=== PATIENT | female | born 1945 | race Caucasian/White ===

== ENCOUNTER 2016-11-22 20:03 | Inpatient (IN) ==
[2016-11-22] MEDS ORDERED: methylPREDNISolone 125 MG/2 ML VIAL IVP ONE (20:35)
[2016-11-22] MEDS ORDERED: Ipratropium/Albuterol Neb 3 ML IH ONE ×2 (20:35→20:37)
--- NOTE | 2016-11-22 20:48 | Emergency Department Note ---
Disposition Clinical Impression: Acute exacerbation of chronic obstructive airways disease Disposition: Admitted As Inpatient Condition: Good Referrals: NO,PCP [Primary Care Provider] - Forms: ED Satisfaction Letter SOB HPI - General Chief Complaint: ED Shortness of Breath/Dyspnea Stated Complaint: "SOB" Time Seen by Provider: 11/22/16 20:27 Source: patient, family Mode of arrival: wheelchair Limitations: no limitations Nursing Notes Reviewed: Yes Vital Signs Reviewed: Yes - History of Present Illness 71-year-old female history of COPD, Swapnil's granulomatosis who presents to the ER with a chief complaint of shortness of breath and cough. Patient reports that she has been sick for the last month in duration. She reports that she follows with a optical glass wet inspector who called her in [facility] a few days ago. She reports a cough without sputum production. No fevers at home. States that she is on 20 mg of prednisone daily. She is compliant with this and has not missed any doses. No sick contacts that she is aware of. She does not wear oxygen at home. No history of DVT, PE or LA. No other complaints. Pt Subjective Complaint: shortness of breath, cough, chest pain Onset (ago): day(s) Context: recent illness Severity: severe Consistency/Duration: constant Improves with: oxygen Worsens with: nothing Known history of: COPD Associated symptoms: Reports: chest pain, cough. Denies: fever, sputum production, lower extremity pain, hemoptysis, nausea/vomiting, abdominal pain Treatment prior to arrival: bronchodilator, other (Zithromax and prednisone) Cough present: Yes Cough Description: Involuntary Cough Frequency: Intermittent Sputum production: No Sputum Amount: None - Related Data Home oxygen amount: none Home Medications Medication Instructions Recorded Confirmed Albuterol Neb [Proventil Neb] 2.5 mg IH Q4H PRN 11/22/16 11/22/16 Albuterol Sulfate [Albuterol 2 puff IH Q4H PRN 11/22/16 11/22/16 Inhaler] Azithromycin [Zithromax] 250 mg PO PER PKG DI 11/22/16 11/22/16 Budesonide/Formoterol 160/4.5 2 puff IH BIDR 11/22/16 11/22/16 [Symbicort 160/4.5] Lisinopril [Zestril] 10 mg PO DAILY 11/22/16 11/22/16 PredniSONE [PredniSONE] 20 mg PO BID 11/22/16 11/22/16 Tiotropium [place] [Spiriva] 18 mcg IH DAILY 11/22/16 11/22/16 Allergies Allergy/AdvReac Type Severity Reaction Status Date / Time Amoxicillin AdvReac Nausea Verified 11/22/16 20:20 All systems ED: reviewed and negative except as stated. Constitutional: Denies: fever Cardiovascular: Reports: chest pain Respiratory: Reports: cough, dyspnea, wheezes. Denies: hemoptysis Gastrointestinal: Denies: abdominal pain, nausea, vomiting, diarrhea Musculoskeletal: Reports: back pain. Denies: neck pain Past Medical History - Past Medical History Attestation: Yes The following information was validated with the patient. Source: patient Medical history: Reports: cancer, COPD, hypertension, other Surgical history: Reports: non-contributory Psychiatric history: Reports: no psych history - Social History Smoking Status: Former smoker Smokeless Tobacco Status: No Alcohol use: Reports: none Drug use: Reports: none Physical Exam - General Limitations: no limitations General appearance: alert, in no apparent distress - Head Head exam: atraumatic, normocephalic, normal inspection - Eye Eye exam: Present: normal appearance, EOMI - ENT ENT exam: normal exam - Neck Neck exam: Present: normal inspection, full ROM - Chest Chest inspection: Present: normal inspection, symmetric chest wall rise - Respiratory Respiratory exam: Present: wheezes (Diffuse end expiratory wheezing.), accessory muscle use, prolonged expiratory phase - Cardiovascular Cardiovascular exam: Present: normal rhythm, tachycardia, normal heart sounds - Abdominal Exam Abdominal exam: Present: soft, Non-Tender. Absent: tenderness - Expanded Upper Extremity Exam Shoulder exam: Present: normal inspection, full ROM Arm exam: Present: normal inspection, full ROM Elbow exam: Present: normal inspection, full ROM Forearm/Wrist exam: Present: normal inspection, full ROM Hand exam: Present: normal inspection, full ROM - Expanded Lower Extremity Exam Hip/Pelvis exam: Present: normal inspection, full ROM Upper leg exam: Present: normal inspection, full ROM Knee exam: Present: normal inspection, full ROM Lower leg exam: Present: normal inspection, full ROM Ankle exam: Present: normal inspection, full ROM Foot/toe exam: Present: normal inspection, full ROM - Neurological Exam Neurological exam: Present: alert - Psychiatric Psychiatric exam: Present: normal affect, normal mood - Skin Skin exam: Present: warm, dry, intact, normal color Course Course Narrative: Patient seen and examined. Vital signs reviewed. Tachycardic here in the 120s. She was 91% on room air at arrival. Doing nebs have been ordered and are in process. We will also give her a dose of IV Solu-Medrol. EKG, chest x- ray and labs including troponin will be ordered. Likely will require admission. - Reevaluation(s) Reevaluation #1: Discussed results of imaging and lab work with the patient. Vital Signs Temperature 99.3 F 11/22/16 20:20 Pulse Rate 126 11/22/16 20:20 Respiratory Rate 24 11/22/16 20:20 Blood Pressure 158/87 11/22/16 20:20 O2 Sat by Pulse Oximetry 93 L 11/22/16 20:20 Temperature 99.3 F 11/22/16 20:20 Pulse Rate 126 11/22/16 20:20 Respiratory Rate 26 11/22/16 20:40 Blood Pressure 158/87 11/22/16 20:20 O2 Sat by Pulse Oximetry 96 11/22/16 20:40 Oxygen Delivery Oxygen Delivery Room Air Shortness of Breath/Dyspnea - MDM Narrative Medical decision making narrative: 71-year-old female presents to the ER due to shortness of breath and cough for 1 month in duration. History of COPD she is not on oxygen at home. 91% on room air here. Patient given DuoNeb treatments and IV steroids. EKG shows sinus tach. Chest x-ray shows no focal consolidation. Admitted to the hospitalist service for COPD exacerbation. - Lab Data Lab results reviewed: Yes I reviewed the patient's lab results. Result diagrams: 11/22/16 20:43 11/22/16 20:43 Lab Results 11/22/16 11/22/16 11/22/16 Range/Units 20:43 20:43 20:43 WBC 16.7 H (4.3-11.1) K/mcL RBC 4.06 (3.82-4.97) M/mcL Hgb 12.7 (11.5-15.4) g/dL Hct 37.1 (35.3-44.9) % MCV 91.4 (83.0-100.0) fL MCH 31.3 (28.0-33.3) pg MCHC 34.2 (31.6-35.5) g/dL RDW 12.9 (11.5-14.5) % Plt Count 299 (140-400) K/mcL MPV 9.9 (9.4-12.4) fL Immature Gran % 0.6 (0-4) % Seg Neutrophils % 85.2 % Lymphocytes % 9.8 % Monocytes % 4.2 % Eosinophils % 0.0 % Basophils % 0.2 % Neutrophils # 14.2 H (1.6-8.9) K/mcL Lymphocytes # 1.6 (0.6-4.6) K/mcL Monocytes # 0.7 (0.0-1.3) K/mcL Eosinophils # 0.0 (0.0-0.6) K/mcL Basophils # 0.0 (0.0-0.2) K/mcL Sodium 125 L (136-145) mEq/L Potassium 4.2 (3.5-4.5) mEq/L Chloride 90 L (98-109) mEq/L Carbon Dioxide 24 (19-29) mEq/L BUN 9 (7-20) mg/dL Creatinine 0.84 (0.57-1.11) mg/dL Est GFR ( Amer) > 60 (> 60) Est GFR (Non-Af Amer) > 60 (> 60) BUN/Creatinine Ratio 11 (6-26) Glucose 100 H (70-99) mg/dL Calculated Osmolality 259 L (280-300) Calcium 9.1 (8.6-10.8) mg/dL Troponin I 0.01 (0-0.03) ng/mL B-Natriuretic Peptide (0-100) pg/mL 11/22/16 Range/Units 20:43 WBC (4.3-11.1) K/mcL RBC (3.82-4.97) M/mcL Hgb (11.5-15.4) g/dL Hct (35.3-44.9) % MCV (83.0-100.0) fL MCH (28.0-33.3) pg MCHC (31.6-35.5) g/dL RDW (11.5-14.5) % Plt Count (140-400) K/mcL MPV (9.4-12.4) fL Immature Gran % (0-4) % Seg Neutrophils % % Lymphocytes % % Monocytes % % Eosinophils % % Basophils % % Neutrophils # (1.6-8.9) K/mcL Lymphocytes # (0.6-4.6) K/mcL Monocytes # (0.0-1.3) K/mcL Eosinophils # (0.0-0.6) K/mcL Basophils # (0.0-0.2) K/mcL Sodium (136-145) mEq/L Potassium (3.5-4.5) mEq/L Chloride (98-109) mEq/L Carbon Dioxide (19-29) mEq/L BUN (7-20) mg/dL Creatinine (0.57-1.11) mg/dL Est GFR ( Amer) (> 60) Est GFR (Non-Af Amer) (> 60) BUN/Creatinine Ratio (6-26) Glucose (70-99) mg/dL Calculated Osmolality (280-300) Calcium (8.6-10.8) mg/dL Troponin I (0-0.03) ng/mL B-Natriuretic Peptide 87 (0-100) pg/mL - Radiology Data Radiology results reviewed: Yes I reviewed the patient's radiology results. Chest X-Ray 11/22/16 20:35 IMPRESSION: No acute cardiopulmonary disease. D/ / Randy Steve MD / Randy Steve MD Interpreting Provider: Randy Steve MD - EKG Data EKG attestation: Yes I reviewed and interpreted this EKG. EKG results narrative: EKG demonstrates sinus tachycardia with a rate of 116. Normal axis. MS interval 124 QRS duration 95 QTC 349 T wave flattening in lead 3 unchanged from previous. No ST elevations or depressions. No acute ischemic findings. No significant changes from previous EKG dated 02/24/06. S.B.A.R. - S.B.A.R. Situation: Demographics, MOA Background: Presenting Complaint, Relevant PMH, Meds, & Allergies Assessment: Vital Signs, Course and respsone to treatment, Exam Concerns, Patient/Family Expectation, Pertinant Lab Results, Outstanding Labs Recommendation: Barrier(s) to disposition, Recommendation based on pending studies, treatments, or consults Meli Report Given to: Dr. Beny Garrison Repor Time: 21:45 Attestation Statement - Attestation Attestation: I examined this patient and my medical decision-making was reviewed with the DIESEL ENGINE FITTER/PA/Advanced Practice Nurse/Resident Physician. I agree with the documented findings, disposition and treatment plan as described except to the extent set forth below.
[2016-11-22 20:52] LABS: Basophils % 0.2 %; Hematocrit 37.1 % (35.3-44.9); Hemoglobin 12.7 g/dL (11.5-15.4); Immature Granulocytes % 0.6 % (0-4); Lymphocytes # 1.6 K/mcL (0.6-4.6); Lymphocytes % 9.8 %; Mean Corpuscular HGB Conc 34.2 g/dL (31.6-35.5); Mean Corpuscular Hemoglobin 31.3 pg (28.0-33.3); Mean Corpuscular Volume 91.4 fL (83.0-100.0); Mean Platelet Volume 9.9 fL (9.4-12.4); Monocytes # 0.7 K/mcL (0.0-1.3); Monocytes % 4.2 %; Neutrophils # 14.2 K/mcL (1.6-8.9); Platelet Count 299 K/mcL (140-400); Red Blood Count 4.06 M/mcL (3.82-4.97); Red Cell Distribution Width 12.9 % (11.5-14.5); Segmented Neutrophils % 85.2 %
[2016-11-22 21:06] LABS: BUN/Creatinine Ratio 11 (6-26); Blood Urea Nitrogen 9 mg/dL (7-20); Calcium 9.1 mg/dL (8.6-10.8); Carbon Dioxide 24 mEq/L (19-29); Chloride 90 mEq/L (98-109); Glucose 100 mg/dL (70-99); Osmolality,Calculated 259 (280-300); Potassium 4.2 mEq/L (3.5-4.5); Sodium 125 mEq/L (136-145); eGFR For African Americans > 60 (> 60); eGFR For Non-African Americans > 60 (> 60)
[2016-11-22] MEDS ORDERED: Acetaminophen 325 MG TABLET PO PRN (23:21)
[2016-11-22] MEDS ORDERED: *HR* Promethazine 25 MG/ML VIAL IVP PRN (23:21)
--- NOTE | 2016-11-22 23:31 | Internal Med History&Physical ---
<Marine Ricks Vannesa - Last Filed: 11/22/16 23:53> Date of Encounter: 11/22/16 Time of Encounter: 23:28 Assessment and Plan (1) Acute exacerbation of chronic obstructive airways disease Current visit: Yes Status: Acute on prednisone 20BID at home continue bronchodilator therapy IV solumedrol 125 x1, then 80q6 azithromycin breathing treatment prn respiratory therapy consult O2 prn maintain O2sat>90 check ABG (2) Swapnil's syndrome Current visit: Yes Status: Acute currently stable on prednisone 20BID (3) Steroid dependence Current visit: Yes Status: Acute treatment of wegeners pulm involvement (4) Hyponatremia Current visit: Yes Status: Acute Na 125 Osm 259 euvolemic calculated Na deficient: .[id number](goal na 130)= 154meq give 1L NS recheck Na (5) Hypochloremia Current visit: Yes Status: Acute Cl 90 giving 1L NS will recheck Internal Medicine - H&P: HPI Chief complaint: dysonea Admitted From: Home Plans for Post Hospital Care: Home History of present illness: Ms. Cohn is a 71 year old female c/o increased dry cough and dyspnea above baseline COPD symptoms. PMHx COPD, wegners vasculititis Pt states increased SOB and dry cough, and wheezing started about a week ago. Pt states dyspnea is worsened with exertion, even more so than usual and is now having SOB at rest. Pt states cough has been constant throughout the past few days causing her to have trouble catching her breath. She states she has also had some discomfort with inspiration the past few days. Started on a zpack two days ago which improved her symptoms minimally. Pt cannot think ok trigger which started exacerbation, no recent sick contacts. Until exacerbation home prednisone and inhaler therapy had been well controlling her syptoms. Pt denies headache, dizziness, syncope, Cp, palpitation, hemoptysis, productive cough. denies nicotine use, quit smoking 20-25yrs ago, no home O2 use, denies numbness/ tingling change in BM urinary habits. She is a pt. Past Med Surg Social Fam HX - Past Medical History Medical history: cancer (bladder cancer), COPD, hypertension, other (Wegeners ) Psychiatric history: no psych history - Past Surgical History Surgical History: non-contributory - Social History Smoking Status: Former smoker (quit 20-25 yrs ago) Packs per day: >1 Smokeless Tobacco Status: No Alcohol use: none Drug use: none Internal Medicine - H&P: Meds Albuterol Neb [Proventil Neb] 2.5 mg IH Q4H PRN 11/22/16 [History] Albuterol Sulfate [Albuterol Inhaler] 2 puff IH Q4H PRN 11/22/16 [History] Azithromycin [Zithromax] 250 mg PO PER PKG DI 11/22/16 [History] Budesonide/Formoterol 160/4.5 [Symbicort 160/4.5] 2 puff IH BIDR 11/22/16 [ History] Lisinopril [Zestril] 10 mg PO DAILY 11/22/16 [History] PredniSONE [PredniSONE] 20 mg PO BID 11/22/16 [History] Tiotropium [place] [Spiriva] 18 mcg IH DAILY 11/22/16 [History] Allergies Amoxicillin Adverse Reaction (Verified 11/22/16 20:20) Nausea All Systems PM: A 10-system review of systems was performed and is negative for pertinent findings except as documented above in the HPI. - Constitutional Constitutional: no anorexia, no chills, no fatigue, no fever(s), no night sweats - EENT Eyes: no change in vision, no discharge, no pain, no photophobia Nose, mouth and throat: no dysphagia, no nasal discharge, no neck pain, no sore throat - Cardiovascular Cardiovascular ROS IM: no chest pain, no diaphoresis, no dyspnea, no lightheadedness, no palpitations, no syncope - Respiratory Respiratory: cough, dyspnea, dyspnea on exertion, wheezing, pain on inspiration , pain with cough, no hemoptysis, no excessive phlegm production, no change in phlegm color - Gastrointestinal Gastrointestinal: no change in bowel habits, no constipation, no diarrhea, no nausea, no vomiting - Genitourinary Genitourinary: no change in urinary stream, no dysuria, no flank pain, no hematuria - Musculoskeletal Musculoskeletal ROS IM: no numbness, no tingling - Integumentary Integumentary IM: new lesions - Neurological Neurological ROS: no confusion, no convulsions, no focal weakness, no numbness, no tingling, no tremor(s) - Hematologic/Lymphatic Hematologic/Lymphatic: no easy bleeding, no easy bruising - Constitutional Vitals: Temp Pulse Resp BP Pulse Ox 99.3 F 125 24 102/67 96 11/22/16 20:20 11/22/16 22:01 11/22/16 22:41 11/22/16 22:41 11/22/16 22:01 General appearance: Present: mild distress, A&O X 3 - Head Head exam: Present: atraumatic, normocephalic - Eye Eye exam: Present: PERRL, conjuntiva pink, sclera anicteric - ENT ENT exam: Present: mucous membranes moist - Neck Neck exam general surgery: Present: full ROM, trachea midline - Respiratory Respiratory exam: Present: accessory muscle use, rhonchi, wheezes (inspiratory and expiatory throughout all long lipscomb Anterior and posterior), tachypnea ( worse with conversation). Absent: chest wall tenderness - Expanded Respiratory Exam Location: rhonchi: Left, Right, Upper, Lower (anterior and posterior), wheezes: Left, Right, Upper, Lower (anterior and posterior) - Cardiovascular Cardiovascular exam: Present: RRR, +S1, +S2 - GI/Abdominal GI/Abdominal exam: Present: normal bowel sounds, soft, no peritoneal signs. Absent: distended, tenderness - Extremities Exam Extremities exam: Present: pedal edema (trace). Absent: calf tenderness, cyanotic - Neurological Exam Neurological exam: Present: CN II-XII intact, oriented X3 Internal Med - H&P Results - Labs CBC & Chem 7: 11/22/16 20:43 11/22/16 20:43 <Juve Madsen - Last Filed: 11/23/16 05:49> Past Med Surg Social Fam HX - Additional Family History Additional family history: + h/o COPD; CAD - EENT Ears: no ear pain, no tinnitus - Respiratory Respiratory: cough, dyspnea, wheezing - Gastrointestinal Gastrointestinal: no abdominal pain, no diarrhea, no vomiting - Musculoskeletal Musculoskeletal ROS IM: no arthralgias, no back pain, no myalgias - Integumentary Integumentary IM: no rash - Psychiatric Psychiatric: no anxiety, no depression - Allergic/Immunologic Allergic/Immunologic: wheezing, no GI upset with certain foods - Constitutional Vitals: Temp Pulse Resp BP Pulse Ox 98.1 F 104 22 121/73 95 03/15/17 23:44 11/22/16 23:44 11/22/16 23:44 11/22/16 23:44 11/22/16 23:44 General appearance: Present: cooperative, mild distress, A&O X 3, pleasant, answers questions appropriately - Eye Eye exam: Present: EOMI, PERRL. Absent: scleral icterus Pupils: Present: normal accommodation - Neck Neck exam general surgery: Present: supple - Respiratory Respiratory exam: Present: accessory muscle use, prolonged expiratory phase, respiratory distress (mild), wheezes, tachypnea - Cardiovascular Cardiovascular exam: Present: RRR, +S1, +S2 - GI/Abdominal GI/Abdominal exam: Present: soft. Absent: tenderness - Extremities Exam Extremities exam: Present: warm. Absent: calf tenderness - Back Exam Back exam: Present: normal inspection. Absent: CVA tenderness (L), CVA tenderness (R) - Neurological Exam Neurological exam: Present: alert, oriented X3, no focal deficits - Psychiatric Psychiatric exam: Present: normal affect, normal mood - Skin Skin exam: Present: dry, warm. Absent: rash Internal Med - H&P Results - Labs CBC & Chem 7: 11/22/16 20:43 11/22/16 20:43 - Diagnostic Studies Chest x-ray Status: image reviewed by me (negative) - Attending Attestation I discussed the patient [place], PMH, ROS, lab data, and exam findings the Dr. Ricks. I then saw and examined patient independently as well. When I saw patient, she stated she felt much better since her initial presentation in the ER. Despite her subjective improvement, she is still working hard to breathe and exhibits some conversational dyspnea. She denies CP. She has not had hemoptysis in several years. Regarding her COPD, she has never been intubated and/or required an ICU stay. She admits to multiple ill contacts, including family members with Influenza. She denies fevers, chills, body aches, or myalgias. However, given her frail condition and exposure, I recommend checking for influenza. With regard to her hyponatremia, she has been low for a while. She had a thyroid ultrasound and FNA 2 years ago, which showed a benign nodule. I will order another ultrasound of her thyroid to assess for possible malignancy as well as obtaining a chest CT. I worry about SIADH from an underlying malignancy. She is not on any chronic diuretics. Will follow her sodium and chemistry levels closely. Other than my comments above and noted exam findings, I agree with Dr. Ricks's assessment and plan.
[2016-11-23] MEDS: 0.9 % Sodium Chloride 1,000 ML IVC SCH ×2 (00:17→08:40)
[2016-11-23] MEDS: methylPREDNISolone 125 MG/2 ML VIAL IVP SCH ×2 (01:44→05:58)
[2016-11-23] MEDS: Albuterol 2.5 MG/3 ML NEBULIZER IH SCH ×2 (04:30→07:42)
[2016-11-23 04:38] LABS: VBG HCO3 24.5 mEq/L (21-27); VBG PH 7.44 pH Units (7.32-7.42)
[2016-11-23] MEDS ORDERED: methylPREDNISolone 125 MG/2 ML VIAL IVP SCH (06:00)
[2016-11-23 06:36] LABS: BUN/Creatinine Ratio 11 (6-26); Blood Urea Nitrogen 9 mg/dL (7-20); Calcium 8.1 mg/dL (8.6-10.8); Carbon Dioxide 21 mEq/L (19-29); Chloride 92 mEq/L (98-109); Glucose 193 mg/dL (70-99); Magnesium 1.5 mg/dL (1.6-2.6); Osmolality,Calculated 258 (280-300); Potassium 4.2 mEq/L (3.5-4.5); Sodium 122 mEq/L (136-145); eGFR For African Americans > 60 (> 60); eGFR For Non-African Americans > 60 (> 60)
[2016-11-23] MEDS: *HR* Heparin 5,000 UNIT/ML VIAL SQ SCH ×2 (07:27→17:17)
[2016-11-23] MEDS ORDERED: Azithromycin 250 MG TABLET PO SCH (09:00)
[2016-11-23] MEDS ORDERED: levoFLOXacin 500 MG TABLET PO ONE (09:19)
[2016-11-23] MEDS ORDERED: Albuterol 2.5 MG/3 ML NEBULIZER IH PRN (09:28)
[2016-11-23] MEDS ORDERED: Levofloxacin 750 MG/150 ML 750 MG/150 ML BAG IVPB SCH (10:00)
[2016-11-23] MEDS ORDERED: Tiotropium 18 MCG inhalation IH SCH (10:00)
[2016-11-23] MEDS ORDERED: Budesonide/Formoterol 160/4.5 MDI IH SCH (10:00)
[2016-11-23] MEDS: Ipratropium/Albuterol Neb 3 ML IH SCH ×3 (10:39→22:45)
[2016-11-23] MEDS: MethylPREDNISolone 40 MG/ML VIAL IVP SCH ×2 (11:52→17:16)
--- NOTE | 2016-11-23 14:16 | Electrocardiograph Report ---
[address] [address] Test Date: 2016-11-22 Pat Name: Angelica Cohn Department: 102 Room: 2A Gender: F Group Exercise Manager: : [id number] Requested By: Morteza Hobson Order Number: [id number] Reading MD: Saurabh Patel MD Measurements Intervals [place] Rate: 116 P: 69 MA: 124 QRS: 64 QRSD: 95 T: 55 QT: 280 QTc: 349 Interpretive Statements SINUS TACHYCARDIA POSSIBLE LEFT ATRIAL ENLARGEMENT Electronically Signed On 11-23-2016 14:14:57 EDT by Saurabh Patel MD
--- NOTE | 2016-11-23 17:26 | Internal Med Progress Note ---
<Driss Stevens - Last Filed: 11/23/16 18:32> Date of Encounter: 11/23/16 Time of Encounter: 11:30 - Assessment and plan (1) Acute exacerbation of chronic obstructive airways disease Current Visit: Yes Status: Acute Assessment and plan: Pt states increased SOB and dry cough, and wheezing started about a week ago. Patient demonstrates diffuse inspiratory and expiratory wheezing on examination. Prior treatment with Z-Sourav 2 days ago with minimal improvement. Patient increased dyspnea requiring 3 L nasal cannula oxygen, tachycardic, elevated WBC count. Plan: - Discontinue azithromycin and start Levaquin. - De-escalate IV Solu-Medrol to Solu-Medrol 40 mg IV every 12 hours. - Continue breathing treatments Proventil nebs. - Descalate oxygen requirements as tolerated. (2) Swapnil's syndrome Current Visit: Yes Status: Acute Assessment and plan: History of Swapnil's granulomatosis. 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 Chest CT demonstrates new right greater than left small areas of ground glass airspace disease, with history of Swapnil's foci may possibly be hemorrhagic. Patient is on prednisone 20 mg by mouth daily at home. Plan: - Hold home dose prednisone as patient started on Solu-Medrol. (3) Hyponatremia Current Visit: Yes Status: Acute Assessment and plan: Patient was admitted with a sodium of 125 was started on normal saline. This mornings sodium was 122. She has multiple risk factors for hyponatremia including chronic steroid use which may be causing some level of adrenal insufficiency but unable to check a cortisol level as we are currently providing high dose steroids for COPD exacerbation. With her significant pulmonary history she is also at risk for SIADH. At this time I will discontinue IV fluids. Clinically she is stable and asymptomatic for hyponatremia. She appears to be euvolemic. Plan: - Discontinue IV fluids. - Recheck sodium with a.m. labs. - If hyponatremia persists in the a.m. we will collect urine sodium and urine osmolality. (4) DVT prophylaxis Current Visit: Yes Status: Acute Assessment and plan: Subcutaneous heparin 5000 units every 12 hours. - Subjective Interval history: Sonny Cohn is seen in the patient bedside this morning. She said that she has continued to have some shortness of breath feels very rhonchorous with clear sputum production. She denies any chest pain, palpitations, chest pressure or abdominal pain nausea vomiting diarrhea constipation. With discussion of her sodium she said she has a history of having low sodium in the past is unsure of its cause. She denies any weakness, muscle spasms were lethargy. She discussed her history of Swapnil's and treatments. She has been on steroids for a long time over the past couple years has been intermittent on her steroid use. - Constitutional Vitals: Temp Pulse Resp BP Pulse Ox 98.3 F 100 18 168/94 97 11/23/16 16:09 11/23/16 16:09 11/23/16 16:09 11/23/16 16:09 11/23/16 16:09 General appearance: Present: cooperative, mild distress, A&O X 3, pleasant, answers questions appropriately - Head Head exam: Present: atraumatic, normocephalic - Eye Eye exam: Present: PERRL, conjuntiva pink, sclera anicteric Pupils: Present: PERRL - Neck Neck exam general surgery: Present: supple, trachea midline. Absent: lymphadenopathy - Respiratory Respiratory exam: Present: rhonchi, wheezes Additional comments: Diffuse wheezing and rhonchi in all lung lipscomb. - Cardiovascular Cardiovascular exam: Present: RRR, +S1, +S2. Absent: diastolic murmur, gallop, rubs, systolic murmur - GI/Abdominal GI/Abdominal exam: Present: normal bowel sounds, soft, no peritoneal signs. Absent: distended, tenderness - Extremities Exam Extremities exam: Present: warm, radial pulses palpable and symetrical. Absent : calf tenderness, cyanotic, pedal edema - Neurological Exam Neurological exam: Present: alert, oriented X3, no focal deficits. Absent: pronater drift, facial droop, speech deficit - Psychiatric Psychiatric exam: Present: normal affect, normal mood - Skin Skin exam: Present: dry, intact Internal Medicine: Result - Labs CBC & Chem 7: 11/22/16 20:43 11/23/16 01:51 - VTE Documentation of Mechanical Device: Intermittent pneumatic compression device Consult Discharge Plan - Plan Referrals: Ariana Lind MD [Primary Care Provider] - 11/27/16 1:30 pm () <Oswald Angel - Last Filed: 11/23/16 19:07> - Assessment and plan (1) Acute respiratory failure with hypoxia Current Visit: Yes Status: Acute Assessment and plan: Continue oxygen supplementation. Eval further prior to discharge. (2) Acute exacerbation of chronic obstructive airways disease Current Visit: Yes Status: Acute (3) Swapnil's syndrome Current Visit: Yes Status: Acute (4) Hyponatremia Current Visit: Yes Status: Acute (5) Hypochloremia Current Visit: Yes Status: Acute (6) Steroid dependence Current Visit: Yes Status: Acute - Constitutional Vitals: Temp Pulse Resp BP Pulse Ox 98.3 F 100 18 168/94 97 11/23/16 16:09 11/23/16 16:09 11/23/16 16:09 11/23/16 16:09 11/23/16 16:09 Internal Medicine: Result - Labs CBC & Chem 7: 11/22/16 20:43 11/23/16 01:51 - Attending Attestation I examined this patient and my medical decision-making was reviewed with the Resident Physician on 11/23/16. I agree with the documented findings, disposition and treatment plan as described except to the extent set forth below. Ms. Cohn is currently admitted for acute exac COPD. She remains moderate to high risk due to potential for worsening respiratory failure. Ms. Cohn is feeling about the same today. She is coughing but sputum won't come up. No CP. No fever or chills. Dyspneic with movement. Appetite fair. Exam Alert. Mod resp distress at rest. Upper airway rhonchi noted. Heart reg No edema I/P 1. Acute exac COPD 2. Hypoxic resp failure 3. Wegeners 4. Hyponatremia Further diagnoses and plan as above.
[2016-11-23] MEDS ORDERED: Budesonide Neb 0.5 MG/2 ML IH SCH (22:00)
[2016-11-24] MEDS: Ipratropium/Albuterol Neb 3 ML IH SCH ×4 (04:31→22:51)
[2016-11-24 05:51] LABS: Basophils % 0.1 %; Hematocrit 31.4 % (35.3-44.9); Immature Granulocytes % 1.2 % (0-4); Lymphocytes # 2.1 K/mcL (0.6-4.6); Mean Corpuscular HGB Conc 34.1 g/dL (31.6-35.5); Mean Corpuscular Hemoglobin 31.6 pg (28.0-33.3); Mean Corpuscular Volume 92.6 fL (83.0-100.0); Mean Platelet Volume 10.5 fL (9.4-12.4); Monocytes % 5.2 %; Neutrophils # 15.5 K/mcL (1.6-8.9); Platelet Count 275 K/mcL (140-400); Red Blood Count 3.39 M/mcL (3.82-4.97); Red Cell Distribution Width 12.9 % (11.5-14.5); Segmented Neutrophils % 82.5 %
[2016-11-24 06:01] LABS: Hemoglobin 10.7 g/dL (11.5-15.4)
[2016-11-24 06:05] LABS: BUN/Creatinine Ratio 18 (6-26); Blood Urea Nitrogen 13 mg/dL (7-20); Calcium 8.5 mg/dL (8.6-10.8); Carbon Dioxide 22 mEq/L (19-29); Chloride 101 mEq/L (98-109); Glucose 151 mg/dL (70-99); Osmolality,Calculated 275 (280-300); Potassium 3.8 mEq/L (3.5-4.5); eGFR For African Americans > 60 (> 60); eGFR For Non-African Americans > 60 (> 60)
[2016-11-24 06:06] LABS: Sodium 131 mEq/L (136-145)
[2016-11-24] MEDS: *HR* Heparin 5,000 UNIT/ML VIAL SQ SCH ×2 (06:12→16:53)
[2016-11-24] MEDS: MethylPREDNISolone 40 MG/ML VIAL IVP SCH ×2 (06:12→16:53)
[2016-11-24] MEDS: levoFLOXacin 500 MG TABLET PO SCH (07:54)
--- NOTE | 2016-11-24 15:08 | Electrocardiograph Report ---
[address] [address] Test Date: 2016-11-24 Pat Name: Angelica Cohn Department: 112 Room: 2A Gender: F [employer]ayer: : 1945 Requested By: Oswald Angel Order Number: [id number] Reading MD: Ariana Edwards Measurements Intervals [place] Rate: 88 P: 66 WI: 141 QRS: 53 QRSD: 86 T: 56 QT: 339 QTc: 384 Interpretive Statements SINUS RHYTHM WITH MARKED SINUS ARRHYTHMIA Electronically Signed On 11-24-2016 15:06:31 EDT by Ariana Edwards
--- NOTE | 2016-11-24 15:18 | Internal Med Progress Note ---
<Driss Stevens - Last Filed: 11/24/16 15:16> Date of Encounter: 11/24/16 Time of Encounter: 15:16 - Assessment and plan (1) Acute exacerbation of chronic obstructive airways disease Current Visit: Yes Status: Acute Assessment and plan: Pt states increased SOB and dry cough, and wheezing started about a week ago. Patient demonstrates diffuse inspiratory and expiratory wheezing on examination. Prior treatment with Z-Sourav 2 days ago with minimal improvement. Patient increased dyspnea requiring 3 L nasal cannula oxygen, tachycardic, elevated WBC count. Plan: - Continue Levaquin. - Continue current dose of Solu-Medrol - Continue breathing treatments Proventil nebs. - Descalate oxygen requirements as tolerated. - Add Mucomyst inhaled 2 mL's every 6 hours. (2) Swapnil's syndrome Current Visit: Yes Status: Acute Assessment and plan: History of Swapnil's granulomatosis. 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 Chest CT demonstrates new right greater than left small areas of ground glass airspace disease, with history of Swapnil's foci may possibly be hemorrhagic. Patient is on prednisone 20 mg by mouth daily at home. 11/24/2016 stable. Plan: - Hold home dose prednisone as patient started on Solu-Medrol. (3) Hyponatremia Current Visit: Yes Status: Acute Assessment and plan: Patient was admitted with a sodium of 125 was started on normal saline. This mornings sodium was 122. She has multiple risk factors for hyponatremia including chronic steroid use which may be causing some level of adrenal insufficiency but unable to check a cortisol level as we are currently providing high dose steroids for COPD exacerbation. With her significant pulmonary history she is also at risk for SIADH. At this time I will discontinue IV fluids. Clinically she is stable and asymptomatic for hyponatremia. She appears to be euvolemic. 11/24/2016: After holding IV fluids overnight her sodium increased to 131 and osmolality improved. More suggestive of SIADH. Plan: - Recheck sodium with a.m. labs. - Fluid restrictions. (4) DVT prophylaxis Current Visit: Yes Status: Acute Assessment and plan: Subcutaneous heparin 5000 units every 12 hours. - Subjective Interval history: Ms. Cohn has been seen and evaluated at patient bedside this morning.. She is alert awake and sitting up and denies any discomforts or pains. She feels her breathing is slightly better compared to yesterday and denies any feelings of weakness, lightheadedness, chest pain, shortness of breath, palpitations, abdominal pains, nausea vomiting diarrhea constipation or urinary discomfort. She denies these symptoms correlating with Swapnil's exacerbations. - Constitutional Vitals: Temp Pulse Resp BP Pulse Ox 98.3 F 94 16 132/76 95 11/24/16 10:33 11/24/16 10:33 11/24/16 11:04 11/24/16 10:33 11/24/16 11:04 General appearance: Present: cooperative, mild distress, A&O X 3, pleasant, answers questions appropriately - Head Head exam: Present: atraumatic, normocephalic - Eye Eye exam: Present: PERRL, conjuntiva pink, sclera anicteric Pupils: Present: PERRL - ENT ENT exam: Present: mucous membranes moist - Neck Neck exam general surgery: Present: supple, trachea midline. Absent: lymphadenopathy - Respiratory Respiratory exam: Present: rhonchi (Diffuse rhonchi appreciated in all lung lipscomb), wheezes (Diffuse inspiratory and expiratory wheeze). Absent: accessory muscle use, rales - Cardiovascular Cardiovascular exam: Present: RRR, +S1, +S2. Absent: diastolic murmur, gallop, rubs, systolic murmur - GI/Abdominal GI/Abdominal exam: Present: normal bowel sounds, soft, no peritoneal signs. Absent: distended, tenderness - Extremities Exam Extremities exam: Present: warm, radial pulses palpable and symetrical. Absent : calf tenderness, cyanotic, pedal edema - Neurological Exam Neurological exam: Present: CN II-XII intact, oriented X3, no focal deficits. Absent: pronater drift, facial droop, speech deficit - Skin Skin exam: Present: dry, intact Internal Medicine: Result - Labs CBC & Chem 7: 11/24/16 05:32 11/24/16 05:32 Labs: Short CBC 11/24/16 Range/Units 05:32 WBC 18.8 H (4.3-11.1) K/mcL Hgb 10.7 L D (11.5-15.4) g/dL Hct 31.4 L (35.3-44.9) % Plt Count 275 (140-400) K/mcL Neutrophils # 15.5 H (1.6-8.9) K/mcL BMP 11/24/16 05:32 Sodium 131 L D Potassium 3.8 Chloride 101 Carbon Dioxide 22 BUN 13 Creatinine 0.74 Glucose 151 H Calcium 8.5 L - VTE Documentation of Mechanical Device: Intermittent pneumatic compression device Consult Discharge Plan - Plan Referrals: Ariana Lind MD [Primary Care Provider] - 11/27/16 1:30 pm () <Oswald Angel - Last Filed: 11/24/16 19:05> - Assessment and plan (1) Acute respiratory failure with hypoxia Current Visit: Yes Status: Acute (2) Acute exacerbation of chronic obstructive airways disease Current Visit: Yes Status: Acute (3) Swapnil's syndrome Current Visit: Yes Status: Acute (4) Hyponatremia Current Visit: Yes Status: Acute (5) Hypochloremia Current Visit: Yes Status: Acute (6) Steroid dependence Current Visit: Yes Status: Acute - Constitutional Vitals: Temp Pulse Resp BP Pulse Ox 98.4 F 100 16 144/77 95 11/24/16 15:34 11/24/16 15:34 11/24/16 15:52 11/24/16 15:34 11/24/16 15:52 Internal Medicine: Result - Labs CBC & Chem 7: 11/24/16 05:32 11/24/16 05:32 Labs: Short CBC 11/24/16 Range/Units 05:32 WBC 18.8 H (4.3-11.1) K/mcL Hgb 10.7 L D (11.5-15.4) g/dL Hct 31.4 L (35.3-44.9) % Plt Count 275 (140-400) K/mcL Neutrophils # 15.5 H (1.6-8.9) K/mcL BMP 11/24/16 05:32 Sodium 131 L D Potassium 3.8 Chloride 101 Carbon Dioxide 22 BUN 13 Creatinine 0.74 Glucose 151 H Calcium 8.5 L - Attending Attestation I examined this patient and my medical decision-making was reviewed with the Resident Physician on 11/24/16. I agree with the documented findings, disposition and treatment plan as described except to the extent set forth below. Ms. Cohn is currently admitted for acute exac COPD. She remains moderate to high risk due to potential for worsening resp status and hx of Wegeners. Ms. Cohn is still coughing and unable to mobilize sputum. She is less dyspneic. No CP. Does not feel like this is consistent with her Wegeners. Exam Alert. Comfortable Heart reg Lungs with rhonchi bilaterally. Abd soft No edema I/P 1. Acute exac COPD 2. Wegeners Further diagnoses and plan as above.
[2016-11-24] MEDS: Acetylcysteine 10% 2 ML INHSOL IH SCH ×2 (15:50→22:51)
[2016-11-24] MEDS ORDERED: Melatonin 3 MG TABLET PO ONE (21:25)
[2016-11-25] MEDS: Acetylcysteine 10% 2 ML INHSOL IH SCH ×4 (04:37→23:54)
[2016-11-25] MEDS: Ipratropium/Albuterol Neb 3 ML IH SCH ×4 (04:37→23:54)
[2016-11-25] MEDS: MethylPREDNISolone 40 MG/ML VIAL IVP SCH ×2 (05:23→17:50)
[2016-11-25] MEDS: *HR* Heparin 5,000 UNIT/ML VIAL SQ SCH ×2 (05:23→17:50)
[2016-11-25 07:26] LABS: Basophils % 0.1 %; Hematocrit 31.8 % (35.3-44.9); Hemoglobin 10.8 g/dL (11.5-15.4); Immature Granulocytes % 1.2 % (0-4); Lymphocytes # 1.7 K/mcL (0.6-4.6); Lymphocytes % 12.6 %; Mean Corpuscular Hemoglobin 31.7 pg (28.0-33.3); Mean Corpuscular Volume 93.3 fL (83.0-100.0); Mean Platelet Volume 10.5 fL (9.4-12.4); Monocytes # 0.6 K/mcL (0.0-1.3); Monocytes % 4.1 %; Neutrophils # 11.2 K/mcL (1.6-8.9); Platelet Count 301 K/mcL (140-400); Red Blood Count 3.41 M/mcL (3.82-4.97); Red Cell Distribution Width 13.1 % (11.5-14.5)
[2016-11-25 07:36] LABS: Alanine Aminotransferase 12 Units/L (0-55); Albumin 2.8 g/dL (3.5-5.0); Albumin/Globulin Ratio 0.9 (1.1-2.2); Alkaline Phosphatase 57 Units/L (38-126); Aspartate Amino Transferase 15 Units/L (5-34); BUN/Creatinine Ratio 27 (6-26); Bilirubin,Total 0.1 mg/dL (0.2-1.2); Blood Urea Nitrogen 22 mg/dL (7-20); Calcium 8.5 mg/dL (8.6-10.8); Carbon Dioxide 22 mEq/L (19-29); Chloride 99 mEq/L (98-109); Glucose 132 mg/dL (70-99); Osmolality,Calculated 271 (280-300); Potassium 4.5 mEq/L (3.5-4.5); Sodium 128 mEq/L (136-145); Total Protein 5.8 g/dL (6.0-8.3); eGFR For African Americans > 60 (> 60); eGFR For Non-African Americans > 60 (> 60)
[2016-11-25] MEDS: levoFLOXacin 500 MG TABLET PO SCH (08:03)
--- NOTE | 2016-11-25 10:47 | Internal Med Progress Note ---
<Driss Stevens - Last Filed: 11/25/16 11:38> Date of Encounter: 11/25/16 Time of Encounter: 10:45 - Assessment and plan (1) Acute exacerbation of chronic obstructive airways disease Current Visit: Yes Status: Acute Assessment and plan: Pt states increased SOB and dry cough, and wheezing started about a week ago. Patient demonstrates diffuse inspiratory and expiratory wheezing on examination. Prior treatment with Z-Sourav 2 days prior to admission with minimal improvement. Patient increased dyspnea requiring 3 L nasal cannula oxygen, tachycardic, elevated WBC count. Plan: - Continue Levaquin po day 2 (started 11/23) . - Continue current dose of Solu-Medrol 40 mg IV every 12 hours - Continue breathing treatments Proventil nebs. - Descalate oxygen requirements as tolerated. - Continue Mucomyst inhaled 2 mL's every 6 hours. - Consulted Respiratory therapy for percussion (2) Swapnil's syndrome Current Visit: Yes Status: Acute Assessment and plan: History of Swapnil's granulomatosis. 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 Chest CT demonstrates new right greater than left small areas of ground glass airspace disease, with history of Swapnil's foci may possibly be hemorrhagic. Patient is on prednisone 20 mg by mouth daily at home. 11/24/2016 stable. 11/25/2016 patient states she has not consistent with her home dose Plan: - Hold home dose prednisone as patient started on Solu-Medrol. - Patient will require taper back to home dose. (3) Hyponatremia Current Visit: Yes Status: Acute Assessment and plan: Patient was admitted with a sodium of 125 was started on normal saline. This mornings sodium was 122. She has multiple risk factors for hyponatremia including chronic steroid use which may be causing some level of adrenal insufficiency but unable to check a cortisol level as we are currently providing high dose steroids for COPD exacerbation. With her significant pulmonary history she is also at risk for SIADH. At this time I will discontinue IV fluids. Clinically she is stable and asymptomatic for hyponatremia. She appears to be euvolemic. 11/24/2016: After holding IV fluids overnight her sodium increased to 131 and osmolality improved. More suggestive of SIADH. 11/25/16: sodium 128, Patient asymptomatic. possible SIADH Plan: - Recheck sodium with a.m. labs. - Continue Fluid restrictions. (4) DVT prophylaxis Current Visit: Yes Status: Acute Assessment and plan: Subcutaneous heparin 5000 units every 12 hours. - Subjective Interval history: Ms. Cohn has been seen and evaluated at patient bedside this morning. She is alert awake and sitting up and denies any discomforts or pains. She continues to have trouble with clearing her lungs. She said she has the feeling that she needs to clear the junk from her lungs but is unable to cough up anything. She feels her breathing is improved but not back to baseline. She became very tearful talking about her frequent medical problems and she feels that every time she becomes sick she does not recover as well. - Constitutional Vitals: Temp Pulse Resp BP Pulse Ox 98.0 F 98 16 129/80 96 11/25/16 08:35 11/25/16 08:35 11/25/16 10:20 11/25/16 08:35 11/25/16 10:20 General appearance: Present: cooperative, mild distress, A&O X 3, pleasant, answers questions appropriately - Head Head exam: Present: atraumatic, normocephalic - Eye Eye exam: Present: PERRL, conjuntiva pink, sclera anicteric Pupils: Present: PERRL - ENT ENT exam: Present: mucous membranes moist - Neck Neck exam general surgery: Present: supple, trachea midline. Absent: lymphadenopathy - Respiratory Respiratory exam: Present: rhonchi, wheezes (Diffuse rhonchi and wheezing). Absent: accessory muscle use, rales - Cardiovascular Cardiovascular exam: Present: RRR, +S1, +S2. Absent: diastolic murmur, gallop, rubs, systolic murmur - GI/Abdominal GI/Abdominal exam: Present: normal bowel sounds, soft, no peritoneal signs. Absent: distended, tenderness - Extremities Exam Extremities exam: Present: warm, radial pulses palpable and symetrical. Absent : calf tenderness, cyanotic, pedal edema - Neurological Exam Neurological exam: Present: alert, oriented X3, no focal deficits. Absent: pronater drift, facial droop, speech deficit - Psychiatric Psychiatric exam: Present: normal affect, normal mood - Skin Skin exam: Present: dry, intact Internal Medicine: Result - Labs CBC & Chem 7: 11/25/16 07:08 11/25/16 07:08 Labs: Short CBC 11/25/16 Range/Units 07:08 WBC 13.6 H (4.3-11.1) K/mcL Hgb 10.8 L (11.5-15.4) g/dL Hct 31.8 L (35.3-44.9) % Plt Count 301 (140-400) K/mcL Neutrophils # 11.2 H (1.6-8.9) K/mcL BMP 11/25/16 07:08 Sodium 128 L Potassium 4.5 Chloride 99 Carbon Dioxide 22 BUN 22 H Creatinine 0.82 Glucose 132 H Calcium 8.5 L Liver Function 11/25/16 Range/Units 07:08 Total Bilirubin 0.1 L (0.2-1.2) mg/dL AST 15 (5-34) Units/L ALT 12 (0-55) Units/L Alkaline Phosphatase 57 (38-126) Units/L Albumin 2.8 L (3.5-5.0) g/dL - VTE Documentation of Mechanical Device: Intermittent pneumatic compression device Consult Discharge Plan - Plan Referrals: Ariana Lnid MD [Primary Care Provider] - 11/27/16 1:30 pm () <Oswald Angel - Last Filed: 11/25/16 16:19> - Assessment and plan (1) Acute respiratory failure with hypoxia Current Visit: Yes Status: Acute (2) Acute exacerbation of chronic obstructive airways disease Current Visit: Yes Status: Acute (3) Swapnil's syndrome Current Visit: Yes Status: Acute (4) Hyponatremia Current Visit: Yes Status: Acute (5) Hypochloremia Current Visit: Yes Status: Acute (6) Steroid dependence Current Visit: Yes Status: Acute - Constitutional Vitals: Temp Pulse Resp BP Pulse Ox 97.7 F 87 18 171/81 95 11/25/16 15:18 11/25/16 15:18 11/25/16 15:57 11/25/16 15:18 11/25/16 15:57 Internal Medicine: Result - Labs CBC & Chem 7: 11/25/16 07:08 11/25/16 07:08 Labs: Short CBC 11/25/16 Range/Units 07:08 WBC 13.6 H (4.3-11.1) K/mcL Hgb 10.8 L (11.5-15.4) g/dL Hct 31.8 L (35.3-44.9) % Plt Count 301 (140-400) K/mcL Neutrophils # 11.2 H (1.6-8.9) K/mcL BMP 11/25/16 07:08 Sodium 128 L Potassium 4.5 Chloride 99 Carbon Dioxide 22 BUN 22 H Creatinine 0.82 Glucose 132 H Calcium 8.5 L Liver Function 11/25/16 Range/Units 07:08 Total Bilirubin 0.1 L (0.2-1.2) mg/dL AST 15 (5-34) Units/L ALT 12 (0-55) Units/L Alkaline Phosphatase 57 (38-126) Units/L Albumin 2.8 L (3.5-5.0) g/dL - Attending Attestation I examined this patient and my medical decision-making was reviewed with the Resident Physician on 11/25/16. I agree with the documented findings, disposition and treatment plan as described except to the extent set forth below. Ms. Cohn is currently admitted for acute hypoxic resp failure and acute exac COPD. She remains moderate to high risk due to potential for worsening respiratory symptoms. Ms. Cohn is having a lot of secretions but feels Mucomyst is helping. No CP. No GI symptoms. No other issues overnight. Exam Alert. Comfortable Heart reg Lungs with rhonchi. Abd soft I/P 1. Hypoxic resp failure 2. COPD 3. Wegeners Further diagnoses and plan as above.
[2016-11-26] MEDS: Ipratropium/Albuterol Neb 3 ML IH SCH ×3 (04:17→16:17)
[2016-11-26] MEDS: Acetylcysteine 10% 2 ML INHSOL IH SCH ×3 (04:17→16:17)
[2016-11-26] MEDS: MethylPREDNISolone 40 MG/ML VIAL IVP SCH ×2 (06:40→17:05)
[2016-11-26] MEDS: *HR* Heparin 5,000 UNIT/ML VIAL SQ SCH ×2 (06:42→17:05)
[2016-11-26] MEDS: levoFLOXacin 500 MG TABLET PO SCH (07:39)
[2016-11-26 08:22] LABS: Basophils # 0.1 K/mcL (0.0-0.2); Basophils % 0.4 %; Eosinophils % 0.1 %; Hematocrit 34.9 % (35.3-44.9); Hemoglobin 11.6 g/dL (11.5-15.4); Immature Granulocytes % 4.3 % (0-4); Lymphocytes # 2.9 K/mcL (0.6-4.6); Lymphocytes % 21.1 %; Mean Corpuscular HGB Conc 33.2 g/dL (31.6-35.5); Mean Corpuscular Hemoglobin 30.9 pg (28.0-33.3); Mean Corpuscular Volume 93.1 fL (83.0-100.0); Mean Platelet Volume 9.9 fL (9.4-12.4); Monocytes # 0.8 K/mcL (0.0-1.3); Monocytes % 5.9 %; Neutrophils # 9.3 K/mcL (1.6-8.9); Platelet Count 358 K/mcL (140-400); Red Blood Count 3.75 M/mcL (3.82-4.97); Red Cell Distribution Width 12.9 % (11.5-14.5); Segmented Neutrophils % 68.2 %
[2016-11-26 08:32] LABS: BUN/Creatinine Ratio 23 (6-26); Blood Urea Nitrogen 18 mg/dL (7-20); Calcium 8.6 mg/dL (8.6-10.8); Carbon Dioxide 22 mEq/L (19-29); Chloride 97 mEq/L (98-109); Glucose 101 mg/dL (70-99); Osmolality,Calculated 266 (280-300); Potassium 4.4 mEq/L (3.5-4.5); Sodium 127 mEq/L (136-145); eGFR For African Americans > 60 (> 60); eGFR For Non-African Americans > 60 (> 60)
[2016-11-26] MEDS: Lactobacillus 1 EACH CAP.SPRINK PO SCH ×2 (12:27→20:46)
--- NOTE | 2016-11-26 12:44 | Internal Med Progress Note ---
Addendum entered and electronically signed by Driss Stevens, DO 11/26 13:49: Physical: gen: alert,awake, interactive, No acute distress HEENT: NC/AT PERRLA, trachea midline, Cardiac: RRR, pulses 2+ radial bilateral Resp: diffuse expiratory wheezing Abdominal: soft non-tender to palpation, + BS Original Note: <Driss Stevens - Last Filed: 11/26/16 13:46> Date of Encounter: 11/26/16 Time of Encounter: 10:00 - Assessment and plan (1) Acute exacerbation of chronic obstructive airways disease Current Visit: Yes Status: Acute Assessment and plan: Pt states increased SOB and dry cough, and wheezing started about a week ago. Patient demonstrates diffuse inspiratory and expiratory wheezing on examination. Prior treatment with Z-Sourav 2 days prior to admission with minimal improvement. Patient increased dyspnea requiring 3 L nasal cannula oxygen, tachycardic, elevated WBC count. 11/26/2016: Breathing improved, Clinical exam is much improved. Plan: - Continue Levaquin po day 3 (started 11/23) . - Continue current dose of Solu-Medrol 40 mg IV every 12 hours - Continue breathing treatments Proventil nebs. - Continue Mucomyst inhaled 2 mL's every 6 hours. (2) Swapnil's syndrome Current Visit: Yes Status: Acute Assessment and plan: History of Swapnil's granulomatosis. 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 Chest CT demonstrates new right greater than left small areas of ground glass airspace disease, with history of Swapnil's foci may possibly be hemorrhagic. Patient is on prednisone 20 mg by mouth daily at home. 11/24/2016 stable. 11/25/2016 patient states she has not consistent with her home dose Plan: - Hold home dose prednisone as patient started on Solu-Medrol. - Patient will require taper back to home dose. (3) Hyponatremia Current Visit: Yes Status: Acute Assessment and plan: Patient was admitted with a sodium of 125 was started on normal saline. This mornings sodium was 122. She has multiple risk factors for hyponatremia including chronic steroid use which may be causing some level of adrenal insufficiency but unable to check a cortisol level as we are currently providing high dose steroids for COPD exacerbation. With her significant pulmonary history she is also at risk for SIADH. At this time I will discontinue IV fluids. Clinically she is stable and asymptomatic for hyponatremia. She appears to be euvolemic. 11/24/2016: After holding IV fluids overnight her sodium increased to 131 and osmolality improved. More suggestive of SIADH. 11/25/16: sodium 128, Patient asymptomatic. possible SIADH 11/26/2016: Sodium 127, patient asymptomatic. Plan: - Recheck sodium with a.m. labs. - Continue Fluid restrictions. (4) Cold sore Current Visit: Yes Status: Acute Assessment and plan: Patient with hx of cold sores has a current episode. Plan: - Valtrex 2000mg PO q12hrs [id number] (5) DVT prophylaxis Current Visit: Yes Status: Acute Assessment and plan: Subcutaneous heparin 5000 units every 12 hours. - Subjective Interval history: Ms. Cohn has been seen and evaluated at patient bedside this morning. She is alert awake and sitting up and denies any discomforts or pains. She feels her breathing is much improved compared to yesterday and that pulmonary therapy helped. She denies the feeling of congestion today. She is hopeful for discharge home soon. She has the feeling of the onset of a cold sore and would prefer oral antiviral therapy. - Constitutional Vitals: Temp Pulse Resp BP Pulse Ox 97.8 F 96 17 117/75 94 L 11/26/16 11:46 11/26/16 11:46 11/26/16 11:46 11/26/16 11:46 11/26/16 11:46 General appearance: Present: cooperative, mild distress, A&O X 3, pleasant, answers questions appropriately Internal Medicine: Result - Labs CBC & Chem 7: 11/26/16 08:04 11/26/16 08:04 Labs: Short CBC 11/26/16 Range/Units 08:04 WBC 13.7 H (4.3-11.1) K/mcL Hgb 11.6 (11.5-15.4) g/dL Hct 34.9 L (35.3-44.9) % Plt Count 358 (140-400) K/mcL Neutrophils # 9.3 H (1.6-8.9) K/mcL BMP 11/26/16 08:04 Sodium 127 L Potassium 4.4 Chloride 97 L Carbon Dioxide 22 BUN 18 Creatinine 0.80 Glucose 101 H Calcium 8.6 - VTE Documentation of Mechanical Device: Intermittent pneumatic compression device Consult Discharge Plan - Plan Referrals: Ariana Lind MD [Primary Care Provider] - 11/27/16 1:30 pm () <StanleyOswald A - Last Filed: 11/26/16 14:36> - Assessment and plan (1) Acute respiratory failure with hypoxia Current Visit: Yes Status: Acute Assessment and plan: Slowly improving with treatment. (2) Acute exacerbation of chronic obstructive airways disease Current Visit: Yes Status: Acute (3) Swapnil's syndrome Current Visit: Yes Status: Acute (4) Hyponatremia Current Visit: Yes Status: Acute (5) Hypochloremia Current Visit: Yes Status: Acute (6) Steroid dependence Current Visit: Yes Status: Acute - Constitutional Vitals: Temp Pulse Resp BP Pulse Ox 97.8 F 96 17 117/75 94 L 11/26/16 11:46 11/26/16 11:46 11/26/16 11:46 11/26/16 11:46 11/26/16 11:46 Internal Medicine: Result - Labs CBC & Chem 7: 11/26/16 08:04 11/26/16 08:04 Labs: Short CBC 11/26/16 Range/Units 08:04 WBC 13.7 H (4.3-11.1) K/mcL Hgb 11.6 (11.5-15.4) g/dL Hct 34.9 L (35.3-44.9) % Plt Count 358 (140-400) K/mcL Neutrophils # 9.3 H (1.6-8.9) K/mcL BMP 11/26/16 08:04 Sodium 127 L Potassium 4.4 Chloride 97 L Carbon Dioxide 22 BUN 18 Creatinine 0.80 Glucose 101 H Calcium 8.6 - Attending Attestation I examined this patient and my medical decision-making was reviewed with the Resident Physician on 11/26/16. I agree with the documented findings, disposition and treatment plan as described except to the extent set forth below. Ms. Cohn is currently admitted for acute exacerbation of COPD and hypoxic resp failure. She remains moderate to high risk due to potential for worsening respiratory issues. Ms. Cohn is sitting on the edge of her bed. She appears to be less dyspniec at rest. No pain. Still cough and congested. Has been off and on oxygen. No fever or chills. Ambulating some. Exam Alert. Comfortable Heart reg Lungs with diffuse rhonchi. No wheeze I/P 1. Acute exac COPD 2. Wegeners Further diagnoses and plan as above.
[2016-11-26] MEDS: valACYclovir 500 MG TABLET PO SCH (13:36)
[2016-11-27] MEDS: Acetylcysteine 10% 2 ML INHSOL IH SCH ×5 (01:15→21:52)
[2016-11-27] MEDS: Ipratropium/Albuterol Neb 3 ML IH SCH ×5 (01:15→21:51)
[2016-11-27 04:51] LABS: Hematocrit 34.5 % (35.3-44.9); Hemoglobin 11.8 g/dL (11.5-15.4); Mean Corpuscular HGB Conc 34.2 g/dL (31.6-35.5); Mean Corpuscular Hemoglobin 31.6 pg (28.0-33.3); Mean Corpuscular Volume 92.5 fL (83.0-100.0); Mean Platelet Volume 10.3 fL (9.4-12.4); Platelet Count 367 K/mcL (140-400); Red Blood Count 3.73 M/mcL (3.82-4.97); Red Cell Distribution Width 12.8 % (11.5-14.5)
[2016-11-27 05:09] LABS: Alanine Aminotransferase 23 Units/L (0-55); Albumin 2.8 g/dL (3.5-5.0); Albumin/Globulin Ratio 0.9 (1.1-2.2); Alkaline Phosphatase 54 Units/L (38-126); Aspartate Amino Transferase 19 Units/L (5-34); BUN/Creatinine Ratio 27 (6-26); Bilirubin,Total 0.2 mg/dL (0.2-1.2); Blood Urea Nitrogen 22 mg/dL (7-20); Calcium 8.7 mg/dL (8.6-10.8); Carbon Dioxide 21 mEq/L (19-29); Chloride 101 mEq/L (98-109); Globulin 3.1 g/dL (2.4-3.5); Glucose 136 mg/dL (70-99); Osmolality,Calculated 273 (280-300); Potassium 4.5 mEq/L (3.5-4.5); Sodium 129 mEq/L (136-145); Total Protein 5.9 g/dL (6.0-8.3); eGFR For African Americans > 60 (> 60); eGFR For Non-African Americans > 60 (> 60)
[2016-11-27 05:57] LABS: Monocytes # 1.3 K/mcL (0.0-1.3); Neutrophils # 8.6 K/mcL (1.6-8.9); Platelet Estimate Normal (Normal)
[2016-11-27] MEDS: *HR* Heparin 5,000 UNIT/ML VIAL SQ SCH ×2 (06:18→17:00)
[2016-11-27] MEDS: MethylPREDNISolone 40 MG/ML VIAL IVP SCH (06:18)
[2016-11-27] MEDS: valACYclovir 500 MG TABLET PO SCH (06:18)
[2016-11-27] MEDS: levoFLOXacin 500 MG TABLET PO SCH (08:37)
[2016-11-27] MEDS: Lactobacillus 1 EACH CAP.SPRINK PO SCH ×2 (08:37→21:15)
[2016-11-27] MEDS ORDERED: Furosemide 40 MG/4 ML VIAL IVP ONE (08:52)
--- NOTE | 2016-11-27 16:44 | Internal Med Progress Note ---
<Driss Stevens - Last Filed: 11/27/16 16:42> Date of Encounter: 11/27/16 Time of Encounter: 16:42 - Assessment and plan (1) Acute exacerbation of chronic obstructive airways disease Current Visit: Yes Status: Acute Assessment and plan: Pt states increased SOB and dry cough, and wheezing started about a week ago. Patient demonstrates diffuse inspiratory and expiratory wheezing on examination. Prior treatment with Z-Sourav 2 days prior to admission with minimal improvement. Patient increased dyspnea requiring 3 L nasal cannula oxygen, tachycardic, elevated WBC count. 11/26/2016: Breathing improved, Clinical exam is much improved. Plan: - Continue Levaquin po (started 11/23), Complete tomorrow . - Started PO prednisone - Continue breathing treatments Proventil nebs. - Continue Mucomyst inhaled 2 mL's every 6 hours. - Will need script for Mucomyst at discharge. (2) Swapnil's syndrome Current Visit: Yes Status: Acute Assessment and plan: History of Swapnil's granulomatosis. 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 Chest CT demonstrates new right greater than left small areas of ground glass airspace disease, with history of Swapnil's foci may possibly be hemorrhagic. Patient is on prednisone 20 mg by mouth daily at home. 11/24/2016 stable. 11/25/2016 patient states she has not consistent with her home dose Plan: - On PO Prednisone. - Patient will require taper back to home dose. (3) Hyponatremia Current Visit: Yes Status: Acute Assessment and plan: Patient was admitted with a sodium of 125 was started on normal saline. This mornings sodium was 122. She has multiple risk factors for hyponatremia including chronic steroid use which may be causing some level of adrenal insufficiency but unable to check a cortisol level as we are currently providing high dose steroids for COPD exacerbation. With her significant pulmonary history she is also at risk for SIADH. At this time I will discontinue IV fluids. Clinically she is stable and asymptomatic for hyponatremia. She appears to be euvolemic. 11/24/2016: After holding IV fluids overnight her sodium increased to 131 and osmolality improved. More suggestive of SIADH. 11/25/16: sodium 128, Patient asymptomatic. possible SIADH 11/26/2016: Sodium 127, patient asymptomatic. 11/27/2016: Sodium 129, patient asymptomatic. Plan: - Recheck sodium with a.m. labs. - Continue Fluid restrictions. - Dose of IV lasix 40mg once. (4) Cold sore Current Visit: Yes Status: Acute Assessment and plan: Stable. Plan: treatment completed (5) DVT prophylaxis Current Visit: Yes Status: Acute Assessment and plan: Subcutaneous heparin 5000 units every 12 hours. - Subjective Interval history: Ms. Cohn has been seen and evaluated at patient bedside this morning. She is alert awake and sitting up and denies any discomforts or pains. 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 She had a headache that has since resolved. She hopes to be discharged. She understands that post hospitalization follow up is important. No further questions today. - Constitutional Vitals: Temp Pulse Resp BP Pulse Ox 97.5 F L 119 16 126/69 96 11/27/16 14:56 11/27/16 14:56 11/27/16 16:03 11/27/16 14:56 11/27/16 16:03 General appearance: Present: cooperative, mild distress, A&O X 3, pleasant, answers questions appropriately - Head Head exam: Present: atraumatic, normocephalic - Eye Eye exam: Present: PERRL, conjuntiva pink, sclera anicteric Pupils: Present: PERRL - ENT ENT exam: Present: mucous membranes moist - Neck Neck exam general surgery: Present: supple, trachea midline. Absent: lymphadenopathy - Respiratory Respiratory exam: Present: CTAB, rhonchi. Absent: accessory muscle use, rales, wheezes Additional comments: rhonchi appreciated in all lung fileds worse at the lung bases. - Cardiovascular Cardiovascular exam: Present: RRR, +S1, +S2. Absent: diastolic murmur, gallop, rubs, systolic murmur - GI/Abdominal GI/Abdominal exam: Present: normal bowel sounds, soft, no peritoneal signs. Absent: distended, tenderness - Extremities Exam Extremities exam: Present: warm, radial pulses palpable and symetrical. Absent : calf tenderness, cyanotic, pedal edema - Neurological Exam Neurological exam: Present: CN II-XII intact, oriented X3, no focal deficits. Absent: pronater drift, facial droop, speech deficit - Psychiatric Psychiatric exam: Present: normal affect, normal mood Internal Medicine: Result - Labs CBC & Chem 7: 11/27/16 04:20 11/27/16 04:20 Labs: Short CBC 11/27/16 Range/Units 04:20 WBC 13.4 H (4.3-11.1) K/mcL Hgb 11.8 (11.5-15.4) g/dL Hct 34.5 L (35.3-44.9) % Plt Count 367 (140-400) K/mcL Neutrophils # 8.6 (1.6-8.9) K/mcL BMP 11/27/16 04:20 Sodium 129 L Potassium 4.5 Chloride 101 Carbon Dioxide 21 BUN 22 H Creatinine 0.82 Glucose 136 H Calcium 8.7 Liver Function 11/27/16 Range/Units 04:20 Total Bilirubin 0.2 (0.2-1.2) mg/dL AST 19 (5-34) Units/L ALT 23 (0-55) Units/L Alkaline Phosphatase 54 (38-126) Units/L Albumin 2.8 L (3.5-5.0) g/dL - VTE Documentation of Mechanical Device: Intermittent pneumatic compression device Consult Discharge Plan - Plan Referrals: Ariana Lind MD [Primary Care Provider] - 12/01/16 2:30 pm () <Oswald Angel - Last Filed: 11/27/16 19:27> - Assessment and plan (1) Acute respiratory failure with hypoxia Current Visit: Yes Status: Acute Assessment and plan: Improving with treatment. (2) Acute exacerbation of chronic obstructive airways disease Current Visit: Yes Status: Acute (3) Swapnil's syndrome Current Visit: Yes Status: Acute (4) Hyponatremia Current Visit: Yes Status: Acute (5) Hypochloremia Current Visit: Yes Status: Acute (6) Steroid dependence Current Visit: Yes Status: Acute - Constitutional Vitals: Temp Pulse Resp BP Pulse Ox 97.5 F L 119 16 126/69 96 11/27/16 14:56 11/27/16 14:56 11/27/16 16:03 11/27/16 14:56 11/27/16 16:03 Internal Medicine: Result - Labs CBC & Chem 7: 11/27/16 04:20 11/27/16 04:20 Labs: Short CBC 11/27/16 Range/Units 04:20 WBC 13.4 H (4.3-11.1) K/mcL Hgb 11.8 (11.5-15.4) g/dL Hct 34.5 L (35.3-44.9) % Plt Count 367 (140-400) K/mcL Neutrophils # 8.6 (1.6-8.9) K/mcL BMP 11/27/16 04:20 Sodium 129 L Potassium 4.5 Chloride 101 Carbon Dioxide 21 BUN 22 H Creatinine 0.82 Glucose 136 H Calcium 8.7 Liver Function 11/27/16 Range/Units 04:20 Total Bilirubin 0.2 (0.2-1.2) mg/dL AST 19 (5-34) Units/L ALT 23 (0-55) Units/L Alkaline Phosphatase 54 (38-126) Units/L Albumin 2.8 L (3.5-5.0) g/dL - Attending Attestation I examined this patient and my medical decision-making was reviewed with the Resident Physician on 11/27/16. I agree with the documented findings, disposition and treatment plan as described except to the extent set forth below. Ms. Cohn is currently admitted for acute exac COPD and hypoxic resp failure. She remains moderate risk due to potential for worsening resp status. Ms. Cohn feels nearly at baseline. She denies new issues. Less cough. Still with secretions. No GI symptoms noted. Exam Alert. Comfortable Heart reg Rhonchi present I/P 1. Acute exac COPD 2. Wegeners Further diagnoses and plan as above.
[2016-11-27] MEDS: predniSONE 20 MG TABLET PO SCH (17:00)
[2016-11-27] MEDS ORDERED: Pantoprazole 40 MG VIAL IVP ONE (18:47)
[2016-11-27] MEDS ORDERED: Sucralfate 1 GM TABLET PO ONE (18:48)
[2016-11-28] MEDS: Ipratropium/Albuterol Neb 3 ML IH SCH ×2 (04:13→09:59)
[2016-11-28] MEDS: *HR* Heparin 5,000 UNIT/ML VIAL SQ SCH (05:09)
[2016-11-28 05:59] LABS: Hematocrit 35.3 % (35.3-44.9); Hemoglobin 11.9 g/dL (11.5-15.4); Mean Corpuscular HGB Conc 33.7 g/dL (31.6-35.5); Mean Corpuscular Hemoglobin 31.2 pg (28.0-33.3); Mean Corpuscular Volume 92.7 fL (83.0-100.0); Mean Platelet Volume 10.4 fL (9.4-12.4); Platelet Count 409 K/mcL (140-400); Red Blood Count 3.81 M/mcL (3.82-4.97); Red Cell Distribution Width 12.9 % (11.5-14.5)
[2016-11-28 06:23] LABS: Alanine Aminotransferase 22 Units/L (0-55); Albumin 2.8 g/dL (3.5-5.0); Albumin/Globulin Ratio 0.9 (1.1-2.2); Alkaline Phosphatase 52 Units/L (38-126); Aspartate Amino Transferase 15 Units/L (5-34); BUN/Creatinine Ratio 32 (6-26); Bilirubin,Total 0.2 mg/dL (0.2-1.2); Calcium 8.4 mg/dL (8.6-10.8); Carbon Dioxide 21 mEq/L (19-29); Chloride 100 mEq/L (98-109); Glucose 145 mg/dL (70-99); Osmolality,Calculated 278 (280-300); Potassium 4.3 mEq/L (3.5-4.5); Sodium 129 mEq/L (136-145); Total Protein 5.8 g/dL (6.0-8.3); eGFR For African Americans > 60 (> 60); eGFR For Non-African Americans 53 (> 60)
[2016-11-28 06:31] LABS: Blood Urea Nitrogen 33 mg/dL (7-20)
[2016-11-28 06:37] LABS: Lymphocytes # 3.4 K/mcL (0.6-4.6); Neutrophils # 13.7 K/mcL (1.6-8.9); Platelet Estimate Normal (Normal)
[2016-11-28 07:31] VITALS: BP 123/67
[2016-11-28] MEDS: Lactobacillus 1 EACH CAP.SPRINK PO SCH (08:40)
[2016-11-28] MEDS: levoFLOXacin 500 MG TABLET PO SCH (08:40)
[2016-11-28] MEDS: predniSONE 20 MG TABLET PO SCH (08:40)
--- NOTE | 2016-11-28 10:20 | Discharge Summary ---
<Driss Stevens - Last Filed: 12/01/16 18:28> Date of Encounter: 11/28/16 Time of Encounter: 10:16 - Discharge Diagnosis (1) Acute exacerbation of chronic obstructive airways disease Priority: Primary Status: Acute (2) Swapnil's syndrome Priority: Secondary Status: Acute (3) Hyponatremia Priority: Primary Status: Acute (4) Cold sore Priority: Secondary Status: Acute (5) DVT prophylaxis Priority: Secondary Status: Acute - Discharge Medications Prescriptions: PredniSONE 40 mg PO DAILY #12 tablet Home Medications: Albuterol Neb [Proventil Neb] 2.5 mg IH Q4H PRN 11/22/16 [History] Albuterol Sulfate [Albuterol Inhaler] 2 puff IH Q4H PRN 11/22/16 [History] Budesonide/Formoterol 160/4.5 [Symbicort 160/4.5] 2 puff IH BIDR 11/22/16 [ History] Lisinopril [Zestril] 10 mg PO DAILY 11/22/16 [History] Tiotropium [place] [Spiriva] 18 mcg IH DAILY 11/22/16 [History] PredniSONE 40 mg PO DAILY #12 tablet 11/28/16 [Rx] Allergies/Adverse Reactions: Allergies Amoxicillin Adverse Reaction (Verified 11/22/16 20:20) Nausea Date of admission: 11/23/16 15:51 Primary care physician: Ariana Spencer Consults: 11/25/16 10:43 Consult to Respiratory Therapy [CONS] Routine Reason for Consult: percution therapy to help with respiratory status. Call Completed: No Discharging clinician: Driss Stevens Anticipated date of discharge: 11/28/16 - Patient Status Disposition: Home, Self-Care Condition: Good Functional capacity at discharge: independent ambulation Overall status at discharge: patient is progressing back to baseline - Discharge Instructions Instructions: Prednisone (By mouth), Chronic Obstructive Pulmonary Disease (DC) , Chronic Hypertension (DC) Follow Up With: Ariana Lind MD [Primary Care Provider] - 12/01/16 2:30 pm () Additional Instructions: Follow up with your PCP in the next 3-5 days Take prescriptions as prescribed. Complete lab work in 3 days. - Diet and Activity Activity: increase activity as tolerated Diet: advance to your usual diet Interval History: Ms. Cohn is a 71 year old female with PMHx COPD, wegners vasculititis Pt states increased SOB and dry cough, and wheezing. She was seen and evaluated and required increased oxygen demand and admitted to general medical floor on . She was started on azithromycin and provided breathing treatments, IV Solu-Medrol. The following morning her steroids were reduced to Solu-Medrol 40 mg IV every 12 hours and she was switched to Levaquin for antibiotic coverage. Initial laboratory results demonstrated leukocytosis, elevated neutrophil counts and hyponatremia. These abnormal labs continued to improve The patient' s inpatient stay and her clinical picture improved back to her baseline. Her inpatient stay and from 11/22/2016 to 11/28/2016. Her IV Levaquin was switched to by mouth Levaquin on day 2 of stay. IV Solu-Medrol switched to by mouth prednisone which she completed the course during her inpatient stay. Patient's sodium stayed between 127 and 131 throughout her inpatient stay which was questionable for SIADH as she had a decreased calculated serum osmolality which remained stable from the time of admission to discharge. On 11/28/2016 she was seen and evaluated at the bedside and deemed stable for discharge home with close follow-up with her primary care physician CT of the chest performed 11/23/2016 demonstrates several new right greater than left small areas of groundglass airspace disease. The patient with Swapnil 's disease, foci of hemorrhage is considered. Otherwise stable appearance of chest. No pulmonary nodules. Chest x-ray on 11/22/2016 demonstrates no acute cardiopulmonary disease. Thyroid ultrasound performed 11/23/2016 demonstrated stable to slight small complex nodules in the right lobe of the thyroid gland. Which measure up to 2.4 cm in size. This is compared to previous biopsied in 2015. Correlation with prior pathology results is suggested. Given the lack of growth, continued ultrasound surveillance can likely be obtained Hospital course: Ms. Cohn is a 71 year old female - Time Spent with Patient Total time spent providing and/or coordinating discharge services: - Constitutional Vitals: Temp Pulse Resp BP Pulse Ox 97.8 F 95 17 123/67 96 11/28/16 07:30 11/28/16 07:30 11/28/16 07:30 11/28/16 07:30 11/28/16 07:30 General appearance: Present: cooperative, mild distress, A&O X 3, pleasant, answers questions appropriately - Head Head exam: Present: atraumatic, normocephalic - Eye Eye exam: Present: PERRL, conjuntiva pink, sclera anicteric Pupils: Present: PERRL - Neck Neck exam general surgery: Present: supple, trachea midline. Absent: lymphadenopathy - Respiratory Respiratory exam: Present: CTAB. Absent: accessory muscle use, rales, rhonchi, wheezes - Cardiovascular Cardiovascular exam: Present: RRR, +S1, +S2. Absent: diastolic murmur, gallop, rubs, systolic murmur - GI/Abdominal GI/Abdominal exam: Present: normal bowel sounds, soft, no peritoneal signs. Absent: distended, tenderness - Extremities Exam Extremities exam: Present: warm, radial pulses palpable and symetrical. Absent : calf tenderness, cyanotic, pedal edema - Neurological Exam Neurological exam: Present: alert, oriented X3, no focal deficits. Absent: pronater drift, facial droop, speech deficit - Skin Skin exam: Present: dry, intact - VTE Documentation of Mechanical Device: Intermittent pneumatic compression device <Oswald Angel - Last Filed: 12/04/16 19:24> - Discharge Diagnosis (1) Acute respiratory failure with hypoxia Status: Acute (2) Acute exacerbation of chronic obstructive airways disease Status: Acute (3) Swapnil's syndrome Status: Acute (4) Hyponatremia Status: Acute (5) Hypochloremia Status: Acute (6) Steroid dependence Status: Acute Date of admission: 11/23/16 15:51 Primary care physician: Ariana [facility]end[facility] Consults: 11/25/16 10:43 Consult to Respiratory Therapy [CONS] Routine Reason for Consult: percution therapy to help with respiratory status. Call Completed: No Hospital course: Ms. Cohn is a 71 year old female - Time Spent with Patient Total time spent providing and/or coordinating discharge services: 38min - Constitutional Vitals: Temp Pulse Resp BP Pulse Ox 97.8 F 95 18 123/67 97 11/28/16 07:30 11/28/16 07:30 11/28/16 09:59 11/28/16 07:30 11/28/16 09:59 - Attending Attestation I examined this patient and my medical decision-making was reviewed with the Resident Physician on 12/01/16. I agree with the documented findings, disposition and treatment plan as described except to the extent set forth below. Ms. Cohn is feeling OK at this time. She is afebrile and vitals are stable Exam Alert. Comfortable Heart reg Plan D/C today.
== END 2016-11-28 11:44 | disposition home or self-care (01) | DRG 190 ==
LOC: EMEROO 20:03 → 2ANU 20:03
PROVIDERS: ADMIT Internal Medicine; ATTEND Internal Medicine

== ENCOUNTER 2021-11-17 11:49 | Observation (INO) ==
[2021-11-17] MEDS: *HR* Adenosine 6 MG/2 ML SYRINGE IVP ONE ×2 (12:12→12:41)
[2021-11-17] MEDS: *HR* Adenosine 6 MG/2 ML VIAL IVP ONE ×2 (12:12→12:15)
[2021-11-17 12:25] LABS: Basophils % 0.4 %; Eosinophils # 0.4 K/mcL (0.0-0.6); Eosinophils % 3.6 %; Hematocrit 37.3 % (35.3-44.9); Hemoglobin 12.7 g/dL (11.5-15.4); Immature Granulocytes % 0.7 % (0-4); Lymphocytes # 2.4 K/mcL (0.6-4.6); Lymphocytes % 23.6 %; Mean Corpuscular Hemoglobin 31.8 pg (28.0-33.3); Mean Corpuscular Volume 93.3 fL (83.0-100.0); Mean Platelet Volume 9.6 fL (9.4-12.4); Monocytes # 1.1 K/mcL (0.0-1.3); Monocytes % 10.6 %; Neutrophils # 6.2 K/mcL (1.6-8.9); Platelet Count 351 K/mcL (140-400); Red Cell Distribution Width 13.2 % (11.5-14.5); Segmented Neutrophils % 61.1 %; White Blood Count 10.1 K/mcL (4.3-11.1)
[2021-11-17] MEDS ORDERED: *HR* Metoprolol 5 MG/5 ML VIAL IVP STA (12:29)
[2021-11-17] MEDS ORDERED: *HR* Adenosine 6 MG/2 ML SYRINGE IVP ONE (12:32)
[2021-11-17] MEDS ORDERED: *HR* Adenosine 6 MG/2 ML VIAL IVP ONE (12:34)
[2021-11-17 12:57] LABS: BUN/Creatinine Ratio 12 (6-26); Blood Urea Nitrogen 10 mg/dL (8-23); Calcium 9.7 mg/dL (8.6-10.3); Carbon Dioxide 25 mEq/L (23-29); Chloride 95 mEq/L (98-107); Glucose 101 mg/dL (70-105); Osmolality,Calculated 271 (280-300); Potassium 3.9 mEq/L (3.5-5.1); Sodium 131 mEq/L (136-145); Troponin I < 0.03 ng/mL (< 0.04); eGFR For African Americans > 60 (> 60); eGFR For Non-African Americans > 60 (> 60)
[2021-11-17] MEDS ORDERED: Perflutren Lipid Microsphere 1.3 ML in 0.9 % Sodium Chloride 8.7 ML IVP PRN (13:19)
[2021-11-17] MEDS ORDERED: Naloxone 0.4 MG/ML INJ IVP PRN (13:23)
[2021-11-17] MEDS ORDERED: *HR* HYDROcodone/Acet 10/325 mg TABLET PO PRN (13:28)
[2021-11-17] MEDS ORDERED: Ipratropium/Albuterol Neb 3 ML IH PRN (13:28)
[2021-11-17] MEDS ORDERED: lisinopriL 10 MG TABLET PO PRN (13:28)
[2021-11-17] MEDS: Aspirin Enteric Coated 81 MG Tablet PO SCH (14:03)
[2021-11-17] MEDS: *HR* Heparin 5,000 UNIT/ML VIAL SQ SCH (17:04)
[2021-11-17] MEDS: Budesonide/Formoterol 160/4.5 1 PUFF INH IH SCH (19:40)
[2021-11-18] MEDS: *HR* Heparin 5,000 UNIT/ML VIAL SQ SCH (05:46)
[2021-11-18] MEDS: Budesonide/Formoterol 160/4.5 1 PUFF INH IH SCH (07:29)
[2021-11-18 08:26] LABS: BUN/Creatinine Ratio 14 (6-26); Blood Urea Nitrogen 10 mg/dL (8-23); Carbon Dioxide 23 mEq/L (23-29); Chloride 100 mEq/L (98-107); Chol/HDL Ratio 2.7 (0-4.9); Cholesterol 232 mg/dL (< 200); Glucose 95 mg/dL (70-105); HDL Cholesterol 86 mg/dL (40-59); LDL Cholesterol,Calculated 128 mg/dL (< 100); Magnesium 1.8 mg/dL (1.6-2.6); Osmolality,Calculated 271 (280-300); Phosphorous 3.1 mg/dL (2.7-4.5); Potassium 4.3 mEq/L (3.5-5.1); Sodium 131 mEq/L (136-145); Triglycerides 88 mg/dL (< 150); eGFR For African Americans > 60 (> 60); eGFR For Non-African Americans > 60 (> 60)
[2021-11-18] MEDS ORDERED: predniSONE 10 MG TABLET PO SCH (09:00)
[2021-11-18 09:02] VITALS: TEMP 98.4
[2021-11-18] MEDS: Aspirin Enteric Coated 81 MG Tablet PO SCH (09:05)
[2021-11-18 09:16] LABS: Estimated Average Glucose 120 mg/dl; Hemoglobin A1C 5.8 %
[2021-11-18 13:43] VITALS: BP 154/68; PULSE 75; O2SAT 98
== END 2021-11-18 14:20 | disposition home or self-care (01) ==
LOC: 3NENU 11:49 → EMEROOARM 11:49 → SUATTDRO 13:24 → 3NENU 14:23
PROVIDERS: ADMIT Internal Medicine; ATTEND Internal Medicine